=== PATIENT | female | born 1950 | race Caucasian/White ===

== ENCOUNTER 2019-03-20 11:53 | Emergency (ER) | payer MEDICARE, OTHER ==
[~2019-03-20] VITALS: Ht 160 cm; Wt 70.2 kg
[~2019-03-20 11:53] MED LIST: CITA20TA2 PO; LANS15CA18 PO
[2019-03-20] MEDS ORDERED: bacitracin 15gm ointment TP ONE (12:40)
[2019-03-20] MEDS ORDERED: LIDOcaine 1% w/EPI 1:200,000 injection 10mL vial IM ONE (12:40)
[2019-03-20] MEDS ORDERED: LIDOcaine 1% w/epiNEPHrine 1:200,000 30ml vial IM ONE (13:00)
[2019-03-20] MEDS ORDERED: acetaminophen 325mg tablet PO ONE (13:25)
[2019-03-20] MEDS ORDERED: CEPH250T PO (14:08)
[2019-03-20 14:27] VITALS: BP 132/84
== END 2019-03-20 14:30 | disposition home or self-care (01) ==
LOC: ER 11:53
DX: S01.511A Laceration without foreign body of lip, initial encounter (principal); Z88.0 Allergy status to penicillin; Z79.899 Other long term (current) drug therapy; W01.0XXA Fall on same level from slipping, tripping and stumbling without subsequent striking against object, initial encounter; Y93.89 Activity, other specified; Y92.89 Other specified places as the place of occurrence of the external cause; Y99.8 Other external cause status
CPT/HCPCS: 12011; 70450; 70486; 99284

== ENCOUNTER 2021-12-21 08:38 | Emergency (ER) | payer MEDICARE, OTHER ==
[~2021-12-21] VITALS: Ht 167.6 cm; Wt 72.7 kg
--- NOTE | 2021-12-21 09:13 | NUR ---
REPORTS CHRONIC ABDOMINAL DISCOMFORT FOR THE PAST MONTH, UNABLE TO SEE PCP AND ONLY WANTS EVAL BECAUSE THEY ARE GOING OUT OF TOWN SOON
[2021-12-21 09:25] LABS: BASOPHILS # (AUTO) 0.1 X10'3 (0-0.2); EOSINOPHILS # (AUTO) 0.2 X10'3 (0-0.9); LYMPHOCYTES # (AUTO) 1.6 X10'3 (1.1-4.8); MONOCYTES # (AUTO) 0.6 X10'3 (0-0.9); PLATELET COUNT 206 X10'3 (140-440); RED CELL DISTRIBUTION WIDTH 14.2 % (11.5-14.5); WHITE BLOOD COUNT 4.6 X10'3 (4.5-11.0)
[2021-12-21 09:27] LABS: EOSINOPHILS % (AUTO) 3.5 % (0-6); HEMATOCRIT 42.7 % (35.0-45.0); HEMOGLOBIN 14.4 g/dl (12.0-16.0); LYMPHOCYTES % (AUTO) 35.1 % (21-51); MEAN CORPUSCULAR HEMOGLOBIN 31.4 PG (27.0-31.0); MEAN CORPUSCULAR HGB CONC 33.6 g/dL (33.0-36.5); MEAN CORPUSCULAR VOLUME 93.6 FL (78-98); MEAN PLATELET VOLUME 8.7 FL (7.4-10.4); MONOCYTES % (AUTO) 12.6 % (2-12); NEUTROPHILS # (AUTO) 2.2 X10'3 (1.8-7.7); NEUTROPHILS % (AUTO) 46.8 % (42-75); RED BLOOD COUNT 4.57 X10'6 (4.20-5.60)
[2021-12-21 09:29] LABS: COLOR,URINE YELLOW (Yellow); GLUCOSE, URINE NEGATIVE (Neg); KETONES,URINE NEGATIVE (Neg); LEUKOCYTE ESTERASE ,URINE NEGATIVE (Neg); NITRITES, URINE NEGATIVE (Neg); OCCULT BLOOD,URINE NEGATIVE (Neg); PROTEIN,URINE NEGATIVE (Neg); UROBILINOGEN,URINE 0.2 E.U/dL (0.2-1.0)
[2021-12-21 09:35] LABS: CLARITY,URINE SLIGHTLY CLOUDY (Clear); UA COLLECTION TYPE CLN CATCH MIDSTREAM
[2021-12-21 09:40] LABS: SQUAMOUS EPITHELIAL CELL,UR MANY /LPF (FEW)
[2021-12-21 09:41] LABS: BACTERIA,URINE FEW /HPF (Neg); TRANSITIONAL EPI CELLS,URINE FEW /HPF; WBC,URINE 0-4 /HPF (0-4)
[2021-12-21 09:41] LABS: ALANINE AMINOTRANSFERASE 15 U/L (12-78); ALBUMIN 3.8 G/DL (3.4-5.0); ALKALINE PHOSPHATASE 69 IU/L (46-116); ANION GAP 7 (8-16); ASPARTATE AMINO TRANSFERASE 16 U/L (10-37); BILIRUBIN,TOTAL 0.4 MG/DL (0.1-1.0); BLOOD UREA NITROGEN 11 MG/DL (7-18); BUN/CREATININE RATIO 12.1 (6.6-38.0); CALCIUM 9.5 MG/DL (8.5-10.1); CHLORIDE 105 MMOL/L (99-107); CREATININE 0.91 MG/DL (0.40-0.90); GLUCOSE 55 MG/DL (70-104); LIPASE 76 U/L (73-393); POTASSIUM 3.9 MMOL/L (3.5-5.1); SODIUM 140 MMOL/L (135-145); TOTAL CARBON DIOXIDE 28.1 MMOL/L (24-32); TOTAL PROTEIN 7.7 G/DL (6.4-8.2); eGFR 61 ML/MIN
[2021-12-21 09:42] LABS: RBC,URINE NONE SEEN /HPF (0-2)
[2021-12-21 09:43] LABS: MUCUS STRANDS MANY /LPF (Neg)
[2021-12-21] MEDS ORDERED: PANT-47 PO (10:11)
[2021-12-21 11:10] VITALS: BP 149/84
== END 2021-12-21 11:11 | disposition home or self-care (01) ==
LOC: ER 08:39
DX: K29.00 Acute gastritis without bleeding (principal); K44.9 Diaphragmatic hernia without obstruction or gangrene; M19.90 Unspecified osteoarthritis, unspecified site; Z87.891 Personal history of nicotine dependence; Z88.0 Allergy status to penicillin; Z79.899 Other long term (current) drug therapy
CPT/HCPCS: 36415; 74176; 80053; 81001; 83690; 85025; 99284

== ENCOUNTER 2022-03-16 06:44 | Day surgery (SDC) | payer MEDICARE, OTHER ==
[~2022-03-16] VITALS: Ht 162.6 cm; Wt 78.2 kg
[~2022-03-16 06:44] MED LIST changes: +PANT-47 PO
[2022-03-16 06:55] VITALS: BP 132/81
[2022-03-16] MEDS ORDERED: THIA100T70 PO (07:06)
[2022-03-16] MEDS ORDERED: PANT40TA54 PO (07:06)
[2022-03-16] MEDS ORDERED: OMEG1CAP13 PO (07:07)
[2022-03-16] MEDS ORDERED: MULT-1085 PO (07:07)
[2022-03-16] MEDS ORDERED: CHOL400T57 PO (07:08)
[2022-03-16] MEDS ORDERED: fentaNYL/PF 50MCG/1 ML 2ML syringe ONE (07:36)
[2022-03-16] MEDS ORDERED: MIDAZolam 1 MG/ML 5ML VIAL ONE (07:37)
[2022-03-16] MEDS ORDERED: LIDOcaine Viscous 15ml cup ONE (07:37)
[2022-03-16] MEDS ORDERED: diphenhydrAMINE 50 mg/ml inj ONE (07:37)
[2022-03-16] MEDS ORDERED: simethicone 40mg/0.6ml oral drops 30ml ONE (08:00)
[2022-03-16 09:11] VITALS: BP 117/83
[2022-03-16 09:21] VITALS: BP 126/87
[2022-03-16 09:31] VITALS: BP 114/82
[2022-03-16 09:41] VITALS: BP 116/62
== END 2022-03-16 10:00 | disposition home or self-care (01) ==
LOC: GI LAB 06:44
PROVIDERS: ATTEND Internal Medicine Gastroenterology
DX: K29.50 Unspecified chronic gastritis without bleeding (principal); K29.80 Duodenitis without bleeding
CPT/HCPCS: 43239; G0500; J2250; J3010; J7030; Z7512; 88305; 99152; A4620; J1200

== ENCOUNTER 2022-08-16 07:41 | Emergency (ER) | payer MEDICARE, OTHER ==
[~2022-08-16] VITALS: Ht 162.6 cm; Wt 77.0 kg
[~2022-08-16 07:41] MED LIST changes: +CHOL400T57 PO; -CITA20TA2 PO; -LANS15CA18 PO; +MULT-1085 PO; +OMEG-5 PO; -PANT-47 PO; +PANT40TA54 PO; +THIA100T70 PO
[2022-08-16 08:27] VITALS: BP 95/54
[2022-08-16] MEDS ORDERED: CefTRIAXone 2gm/D5W 50ml BAG 50 ML IV ONE (08:35)
[2022-08-16] MEDS ORDERED: ipratropium/albuterol 3ml nebule NEB ONE (08:35)
[2022-08-16] MEDS ORDERED: normal saline 1000ML IV soln IVB ONE (08:35)
[2022-08-16] MEDS ORDERED: methylPREDNISolone sod succ 125mg/2ml vial IV ONE (08:35)
[2022-08-16] MEDS ORDERED: budesonide 0.5mg/2ml UD nebule IH ONE (08:35)
[2022-08-16 09:00] LABS: BASOPHILS # (AUTO) 0.1 X10'3 (0-0.2); BASOPHILS % (AUTO) 0.7 % (0-1); EOSINOPHILS % (AUTO) 0.4 % (0-6); HEMOGLOBIN 14.4 g/dl (12.0-16.0); LYMPHOCYTES # (AUTO) 0.8 X10'3 (1.1-4.8); LYMPHOCYTES % (AUTO) 8.7 % (21-51); MEAN CORPUSCULAR HEMOGLOBIN 31.6 PG (27.0-31.0); MEAN CORPUSCULAR HGB CONC 33.4 g/dL (33.0-36.5); MEAN CORPUSCULAR VOLUME 94.4 FL (78-98); MEAN PLATELET VOLUME 8.4 FL (7.4-10.4); MONOCYTES # (AUTO) 1.2 X10'3 (0-0.9); MONOCYTES % (AUTO) 12.8 % (2-12); NEUTROPHILS % (AUTO) 77.4 % (42-75); PLATELET COUNT 187 X10'3 (140-440); RED BLOOD COUNT 4.55 X10'6 (4.20-5.60); RED CELL DISTRIBUTION WIDTH 13.3 % (11.5-14.5)
[2022-08-16 09:15] LABS: ALANINE AMINOTRANSFERASE 12 U/L (12-78); ALBUMIN 3.4 G/DL (3.4-5.0); ALBUMIN/GLOBULIN RATIO 0.8 (1.1-1.5); ALKALINE PHOSPHATASE 81 IU/L (46-116); ANION GAP 7 (8-16); ASPARTATE AMINO TRANSFERASE 18 U/L (10-37); BILIRUBIN,TOTAL 0.7 MG/DL (0.1-1.0); BLOOD UREA NITROGEN 11 MG/DL (7-18); BUN/CREATININE RATIO 12.8 (10.0-20.0); CALCIUM 9.3 MG/DL (8.5-10.1); CHLORIDE 103 MMOL/L (99-107); CREATININE 0.86 MG/DL (0.40-0.90); GLUCOSE 98 MG/DL (70-104); POTASSIUM 3.9 MMOL/L (3.5-5.1); SODIUM 138 MMOL/L (135-145); TOTAL CARBON DIOXIDE 28.2 MMOL/L (24-32); TOTAL PROTEIN 7.5 G/DL (6.4-8.2); eGFR 65 ML/MIN
[2022-08-16] MEDS ORDERED: DEXT15LI3 PO (10:11)
[2022-08-16] MEDS ORDERED: DOXY-411 PO (10:11)
[2022-08-16] MEDS ORDERED: BECL7.3A INH (10:11)
[2022-08-16] MEDS ORDERED: PRED20TA PO (10:11)
== END 2022-08-16 10:40 | disposition home or self-care (01) ==
LOC: ER 07:42
DX: J44.1 Chronic obstructive pulmonary disease with (acute) exacerbation (principal)
CPT/HCPCS: 36415; 71045; 80053; 83880; 85025; 93005; 96365; 96375; 99285; J0696; J2930; J7030; 94760

== ENCOUNTER 2025-03-28 09:35 | Emergency (ER) | payer MEDICARE, OTHER ==
[~2025-03-28] VITALS: Ht 162.6 cm; Wt 77.2 kg
[~2025-03-28 09:35] MED LIST changes: +BECL7.3A INH; +DEXT15LI31 PO
[2025-03-28 10:18] LABS: MEAN PLATELET VOLUME 9.1 FL (7.4-10.4); RED CELL DISTRIBUTION WIDTH 14.0 % (11.5-14.5)
--- NOTE | 2025-03-28 10:19 | Physician Documentation ---
History of Present Illness Chief Complaint: Nausea Stated Complaint: UNABLE TO EAT Time Seen by MD: 09:58 HPI 75-year-old female presented to the ED due to nausea and intermittent abdominal pain. She reported she was nauseous over last five days, it was most of the time related to eating, she reported one or 2 times vomiting small amount of foot . She reported mild intermittent abdominal pain in upper abdomen not related to food or bowel movement. Last bowel movement was five days ago which was normal consistency no any diarrhea or constipation reported. She reported occasional dysuria and urinary frequency. She denied chest pain shortness of breath fever chills, generalized weakness, any neurological symptoms. Patient does not take any medication. Medication Reconciliation Allergies: Coded Allergies: No Known Allergies (Unverified , 03/16/22) Scheduled Beclomethasone Dipropionate (Qvar 40 MCG INHALER), 2 PUFFS INH BID Cholecalciferol (Vitamin D3) (Vitamin D3), 1 TAB PO DAILY, (Reported) Dextromethorphan HBr (Tussin Cough), 5 ML PO Q12H Docosahexanoic Acid/Epa (Fish Oil 1,000 Mg Softgel), 1 CAP PO DAILY, (Reported) Multivitamin (Multi Vitamin Daily), 1 TAB PO DAILY, (Reported) Pantoprazole Sodium (Pantoprazole Sodium), 1 TAB PO BID, (Reported) Thiamine Mononitrate (Vitamin B-1), 1 TAB PO DAILY, (Reported) Past Medical History Past Medical History: No Pertinent History, Gastritis, Osteoarthritis, Anxiety Past Surgical History: orthopedic surgeries Alcohol Use: None Drug Use: none Review of Systems ROS The history of present illness included a review of system, which yielded relevant positives and negatives Physical Exam Vital Signs: Source: Oral, Heart Rate: 56, Respiratory Rate: 21, BP: 108/77, Pulse Oximetry: 96 Oxygen Flow Rate: 0 Physical Exam General: Awake and Alert, no acute distress. HEENT: Conjunctiva pink, Sclera clear, Mucus Membranes moist. Neck: Supple without masses and tenderness. Resp: Lungs clear to auscultation bilaterally. Heart: Regular Rate and rhythm, normal S1 and S2 Abdomen: Soft, not distended, BS + Extremities: No cyanosis,clubbing or edema. Skin: Warm and Dry. Neurological: Speech is clear, alert, and oriented x 4, no gross neurological deficits Progress Results/Orders Results/Orders Orders - ADIBI,CHACORTA, RES Ultrasound Of Abdomen (03/28/25 ) Vital Signs 03/28/25 09:37 Pulse 56 Resp 21 B/P (MAP) 108/77 Pulse Ox 96 O2 Flow Rate 0 EKG/XRAY/CT/US/VASC/MRI EKG : Additional Comment EKG: EKG rate 56, sinus rhythm, no ST-T changes, QTC 458 Medical Decision Making Additional information obtaine: family Findings 75-year-old female presented to the ED due to nausea and mild intermittent abdominal pain. Differential diagnosis including but not limited to, gastritis, cholecystitis, pancreatitis, peptic ulcer, urinary tract infection less likely myocardial infarction, bowel ischemia, CT scan of the abdomen/pelvis shows some changes in the liver but no acute pathology requiring immediate treatment. I will have the patient follow-up with her PCP. Differential Dx:Considerations: Cholelithasis, Constipation, Diverticular disease, Esophagitis, Ischemic bowel, Pancreatitis Departure Disposition: 01 HOME / SELF CARE / HOMELESS Impression: Primary Impression: Nausea Condition: Stable Additional Instructions: It is important to see your doctor or primary care provider. Emergency care may be incomplete without proper follow-up. Symptoms sometimes change or new symptoms might arise after you leave the emergency department. It is important that you call your doctor if you become worse in any way, or return to the emergency department. You are strongly urged to follow-up with your physician to assure complete and thorough care. Please call your doctor's office today, and informed them that you were seen in the emergency department, and that you need to be seen immediately for close follow-up. If you do not have a primary care doctor we encourage you to proactively seek a local physician for close follow-up. Consider local clinics, [facility], or local [facility]. Prior to discharge we spoke at length concerning symptoms that would merit reevaluation, but please return to the emergency department for any symptoms that are concerning to you, and we will be happy to continue your evaluation and treatment. Please note you can always return to the emergency department if you are having difficulty coordinating close follow-up. If medications were prescribed, you should fill them at your local pharmacy immediately and take only as prescribed. Bring your new medications to your doctors follow-up visit to discuss any changes that would be necessary. Please check [facility] for any results you did not receive in the Emergency Department: often we are unable to get all your tests back before you leave, and these tests need to be reviewed by your PCP and yourself. You can also call Medical Records if you are unable to access the internet to see MyChart. Return to the emergency department immediately for worsening chest pain, difficulty breathing, sweating, or other concerning emergent symptoms. Referrals: NO PRIMARY CARE PROVIDER (PCP) Prescriptions ONDANSETRON ODT 4mg tablet (ONDANSETRON ODT) 4 Mg Tab.rapdis 1 TAB PO Q6H PRN PRN for nausea/vomiting for 4 Days, #16 TAB 0 Refills Prov: KIMBERLY ARCINIEGA MD 03/28/25 Signature Scribe Signature: bacilio nagy Attestation: The resident MD attestation: I examined the patient and discussed the plan with attending physician Dr Arciniega I have reviewed this case [id number] with the resident, including physical examination, laboratory and imaging results as appropriate. The patient was evaluated [id number] and I agree with the resident's notes. I agree with the findings, evaluation and disposition. CHACORTA TEAGUE, RES Mar 28, 2025 10:19 KIMBERLY ARCINIEGA MD Mar 28, 2025 13:33
[2025-03-28 10:34] LABS: CREATININE 1.05 MG/DL (0.40-0.90); TOTAL CARBON DIOXIDE 26.9 MMOL/L (24-32); eGFR 51 ML/MIN
--- NOTE | 2025-03-28 10:34 | ELECTROCARDIOGRAPH REPORT ---
[facility] Test Date: 2025-03-28 Test Time: 10:31:54 Pat Name: JUDITH WILL Department: [facility] Patient ID: [id number] Room: Gender: F Senior Administrative Support: : 1950 Requested By: CHACORTA TEAGUE Order Number: [id number] Reading MD: Dr. Jose Hernandes Measurements Intervals [place] Rate: 56 P: -88 AR: 129 QRS: 65 QRSD: 98 T: 19 QT: 474 QTc: 458 Interpretive Statements Sinus or ectopic atrial bradycardia Electronically Signed On 03-28-2025 18:50:[address] Jose Hernandes Please click the below link to view image of tracing.
[2025-03-28] MEDS: normal saline 500ml IV soln 500 ML IV ONE (11:29)
--- NOTE | 2025-03-28 13:30 | RADIOLOGY REPORT ---
EXAM: US ULTRASOUND OF ABDOMEN HISTORY: abdominal pain COMPARISON: None TECHNIQUE: Multiple longitudinal and transverse sonographic images of the abdomen were obtained. Doppler was applied as indicated. FINDINGS: [PANCREAS]: The visualized portions of the pancreas are unremarkable. [AORTA]: Normal [LIVER]: 12.6 cm. normal echogenicity and echotexture. There is no focal hepatic mass lesion detected. [GALLBLADDER]: Surgically absent [BILIARY TREE]: Common bile duct measures 0.8 cm in diameter. no intrahepatic biliary ductal dilatation. [ASCITES]: No free fluid is demonstrated. [VESSELS]: The main portal vein is patent on color Doppler evaluation. The inferior vena cava is patent on color Doppler evaluation. [RIGHT KIDNEY]: 9.5 cm. normal cortical echogenicity and normal contour. No hydronephrosis. IMPRESSION: 1. No acute sonographic abnormality of the abdomen.
[2025-03-28] MEDS: normal saline 1000ml 1,000 ML IV ONE (14:05)
[2025-03-28] MEDS: ondansetron/PF 4mg/2ml inj IV ONE (14:06)
[2025-03-28] MEDS ORDERED: iohexol 300mg/ml 100ml inj. ONE (15:03)
--- NOTE | 2025-03-28 16:59 | RADIOLOGY REPORT ---
EXAM: CT CT ABDOMEN PELVIS W/ IV CONTRAST HISTORY: Lower abdominal pain TECHNIQUE: Volumetric multidetector CT images of the abdomen and pelvis were obtained after the administration of intravenous contrast. All CT scans at this facility use dose modulation, iterative reconstruction, and/or weight based dosing when appropriate to reduce radiation dose to as low as reasonably achievable. COMPARISON: US ULTRASOUND OF ABDOMEN on DOS: 03/28/25 FINDINGS: [LOWER CHEST]: Diffusely distributed centrilobular emphysema. [id number] cardiomegaly. [LIVER]: Indeterminate diffusely distributed oval hypoattenuating lesions throughout the liver. Hepatomegaly. Question sequelae of chronic liver disease. [GALLBLADDER AND BILIARY TREE]: Surgically absent. [SPLEEN]: Unremarkable. [PANCREAS]: Unremarkable. [ADRENAL GLANDS]: Question left adrenal gland removal [KIDNEYS]: No hydronephrosis. No nephroureterolithiasis. No suspicious focal lesion. [BLADDER]: Unremarkable for the degree distention. [REPRODUCTIVE ORGANS]: Uterine calcified fibroids [BOWEL/MESENTERY]: Stomach is decompressed. Gastric rugal prominence. [id number]-thmeusxw sigmoid diverticulosis. Minimal descending colonic diverticulosis. Normal appendix. [ASCITES]: Absent [LYMPHADENOPATHY]: No pathologically enlarged lymph nodes by CT size criteria [VASCULATURE]: No aneurysmal dilatation. [ABDOMINAL WALL]: Unremarkable. [MUSCULOSKELETAL]: No acute fracture or aggressive focal osseous lesion. Multifocal degenerative change of the visualized spine. IMPRESSION: 1. Indeterminate diffusely distributed oval hypoattenuating lesions throughout the liver. 2. Recommend nonemergent MRI liver protocol with and without contrast. 3. Question sequelae of chronic liver disease. 4. Gastric rugal prominence. Correlate for underlying gastritis.
[2025-03-28 17:27] LABS: LEUKOCYTE ESTERASE ,URINE NEGATIVE (Neg); NITRITES, URINE NEGATIVE (Neg); OCCULT BLOOD,URINE NEGATIVE (Neg)
[2025-03-28 17:39] LABS: UA COLLECTION TYPE NON-SPECIFIED
[2025-03-28 17:40] LABS: RENAL CELLS, URINE FEW /HPF; SQUAMOUS EPITHELIAL CELL,UR MANY /LPF (FEW)
[2025-03-28] MEDS ORDERED: ONDA-243 PO (17:52)
[2025-03-28 18:06] VITALS: BP 146/68; PULSE 66; RESP 14; O2SAT 98
== END 2025-03-28 18:13 | disposition home or self-care (01) ==
LOC: ER 09:36
DX: R11.0 Nausea (principal); R35.0 Frequency of micturition; F41.9 Anxiety disorder, unspecified; Z79.899 Other long term (current) drug therapy; Z98.890 Other specified postprocedural states
CPT/HCPCS: 36415; 74177; 76700; 80053; 81001; 83690; 84484; 85025; 93005; 96361; 96374; 99285; J2470; J7030; J7040; Q9967